=== PATIENT | female | born 1980 | race Caucasian/White ===

== ENCOUNTER → 2017-10-07 08:21 | Outpatient (REF) | payer OTHER, SELFPAY ==
[2017-10-07 14:21] LABS: Basophils # 0.1 K/mm3 (0-0.2); Basophils % 0.6 % (0.1-2.0); Eosinophils # 0.7 K/mm3 (0.0-0.4); Eosinophils % 7.5 % (0.1-12.0); Hematocrit 47.9 % (37.0-47.0); Hemoglobin 15.6 g/dL (12.2-16.2); Lymphocytes # 2.1 K/mm3 (0.7-4.5); Lymphocytes % 23.8 K/mm3 (10-50); Mean Corpuscular HGB Conc 32.6 g/dL (31.8-35.4); Mean Corpuscular Hemoglobin 31.4 pg (27.0-31.2); Mean Corpuscular Volume 96.6 fl (81-99); Mean Platelet Volume 10.5 fl (7.4-10.4); Monocytes # 0.4 K/mm3 (0.1-1.0); Monocytes % 4.5 % (1.7-9.3); Neutrophils # 5.7 K/mm3 (1.8-7.8); Neutrophils % 63.6 % (37.0-80.0); Platelet Count 257 K/mm3 (142-424); Red Blood Count 4.96 M/mm3 (4.20-5.40); Red Cell Distribution Width 13.1 % (11.5-17.5)
[2017-10-07 14:39] LABS: Alanine Aminotransferase 23 U/L (12-78); Albumin Level 3.7 gm/dL (3.4-5.0); Alkaline Phosphatase 127 U/L (46-116); Aspartate Amino Transferase 11 U/L (15-37); Bilirubin,Total 0.2 mg/dL (0.2-1.0); Blood Urea Nitrogen 4 mg/dL (7-18); Calcium 8.9 mg/dL (8.5-10.1); Carbon Dioxide 26 mmol/L (21.0-32.0); Chloride 103 mmol/L (98-107); Chol/HDL Ratio 5.1 (1-3.5); Cholesterol 214 mg/dL (140-200); Estimated Glomerular Filt Rate 95 ml/min (>60); Free T4 (Free Thyroxine) 0.99 ng/dl (0.76-1.46); GFR (African American) 115 ML/MIN (>60); Globulin 3.7 gm/dl (1.3-3.2); Glucose 83 mg/dL (74-106); HDL Cholesterol 42 mg/dL (29-89); LDL Cholesterol 130 mg/dL (0-130); Sodium 141 mmol/L (136-145); Thyroid Stimulating Hormone 8.78 uIU/ml (0.358-3.740); Total Protein,Serum 7.4 gm/dL (6.4-8.2); Triglycerides 211 mg/dL (30-200); VLDL Cholesterol 42 mg/dL (0-40)
[2017-10-07 16:18] LABS: Hemoglobin A1C 5.4 % (0.0-7.0)
[2017-10-08 13:22] LABS: Vitamin D 25 Hydroxy 13.1 ng/mL (30.0-100.0)
== END ==
LOC: LAB 08:21
PROVIDERS: Visit Provider Nurse Practitioner Family
DX: R53.83 Other fatigue (principal)
CPT/HCPCS: 80053; 80061; 82652; 83036; 84439; 84443; 85025

== ENCOUNTER → 2017-10-17 13:44 | Outpatient (CLI) | payer OTHER, SELFPAY ==
--- NOTE | 2017-10-17 13:46 | US_ITS ---
US thyroid COMPARISON: None HISTORY: Suspected thyroid enlargement on exam TECHNIQUE: Targeted ultrasound of the thyroid FINDINGS: The isthmus of the gland is grossly normal. The right lobe measures 1.9 x 1.8 x 3.5 cm. The left lobe measures 1.2 x 1.6 x 3.3 cm. There is homogeneous echogenicity in both lobes with normal vascular flow to both lobes. No cystic or solid lesions are seen. IMPRESSION: Mildly enlarged thyroid gland with homogeneous echogenicity suggesting mild diffuse goiter
== END ==
PROVIDERS: Family Provider Internal Medicine Adolescent Medicine; PCP Nurse Practitioner Family; Visit Provider Nurse Practitioner Family
DX: E07.9 Disorder of thyroid, unspecified (principal); R53.83 Other fatigue
CPT/HCPCS: 76536

== ENCOUNTER 2021-01-28 02:57 | Emergency (ER) | payer OTHER, SELFPAY ==
[2021-01-28 03:05] VITALS: BP 163/91; PULSE 73; RESP 17; TEMP 36.7; O2SAT 98; BMI 27.1
--- NOTE | 2021-01-28 03:09 | CT_ITS ---
PROCEDURE INFORMATION: Exam: CT Abdomen And Pelvis With Contrast Exam date and time: 01/28/2021 3:09 AM Age: 40 years old Clinical indication: Abdominal pain; Localized; Patient HX: Abd pain radiating to right side with nausea for 3 hours; Additional info: Abd pain radiating to right flank TECHNIQUE: Imaging protocol: Computed tomography of the abdomen and pelvis with contrast. Radiation optimization: All CT scans at this facility use at least one of these dose optimization techniques: automated exposure control; mA and/or kV adjustment per patient size (includes targeted exams where dose is matched to clinical indication); or iterative reconstruction. Contrast material: ISOVUE; Contrast volume: 75 ml; Contrast route: IV; COMPARISON: ABDPELW/O CT ABD PELVIS W/O CONTRAST 06/17/2015 12:56 PM FINDINGS: Liver: Normal. No mass. Gallbladder and bile ducts: The gallbladder is distended and there are multiple gallstones. Pancreas: Normal. No ductal dilation. Spleen: Normal. No splenomegaly. Adrenal glands: Normal. No mass. Kidneys and ureters: Normal. No hydronephrosis. Stomach and bowel: Unremarkable. No obstruction. No mucosal thickening. Appendix: No evidence of appendicitis. Intraperitoneal space: Unremarkable. No free air. No significant fluid collection. Vasculature: Unremarkable. No abdominal aortic aneurysm. Lymph nodes: Unremarkable. No enlarged lymph nodes. Urinary bladder: Unremarkable as visualized. Reproductive: There is an irregular hyperdense crenelated lesion in the right ovary, consistent with a corpus luteum. Bones/joints: Unremarkable. No acute fracture. Soft tissues: Unremarkable. IMPRESSION: The gallbladder is distended and there are multiple gallstones.
[2021-01-28 03:33] LABS: Basophils # 0.1 K/mm3 (0-0.2); Basophils % 0.9 % (0.1-2.0); Eosinophils # 0.6 K/mm3 (0.0-0.4); Eosinophils % 6.5 % (0.1-12.0); Hematocrit 43.5 % (37.0-47.0); Lymphocytes % 32.4 % (10-50); Mean Corpuscular HGB Conc 34.4 g/dL (31.8-35.4); Mean Corpuscular Hemoglobin 30.5 pg (27.0-31.2); Mean Corpuscular Volume 88.7 fl (81-99); Monocytes # 0.5 K/mm3 (0.1-1.0); Monocytes % 5.4 % (1.7-9.3); Neutrophils # 5.1 K/mm3 (1.8-7.8); Neutrophils % 54.8 % (37.0-80.0); Red Cell Distribution Width 16.7 % (11.5-17.5); White Blood Count 9.4 K/mm3 (4.8-10.8)
[2021-01-28 03:44] LABS: Alanine Aminotransferase 18 U/L (12-78); Albumin Level 4.5 g/dl (3.5-5.0); Albumin/Globulin Ratio 1.4 (1.1-1.8); Alkaline Phosphatase 112 U/L (38-126); Amylase 75 U/L (30-110); Anion Gap 15.1 mEq/L (5-15); Aspartate Amino Transferase 30 U/L (14-36); Bilirubin,Total 0.6 mg/dl (0.2-1.3); Blood Urea Nitrogen 9 mg/dl (7-17); Calcium 9.4 mg/dl (8.4-10.2); Carbon Dioxide 25 mmol/L (22.0-30.0); Chloride 101 mmol/L (98-107); Creatinine Clearance Estimated 169 mL/min (50-200); Estimated Glomerular Filt Rate 111 ml/min (>60); GFR (African American) 134 ML/MIN (>60); Globulin 3.2 g/dL (1.3-3.2); Glucose 112 mg/dl (74-100); Lipase 199 U/L (23-300); Potassium 4.1 mmoL/L (3.5-5.1); Sodium 137 mmol/L (136-145); Total Protein,Serum 7.7 g/dl (6.3-8.2)
[2021-01-28 03:49] LABS: C-Reactive Protein 4.5 mg/L (0-4)
[2021-01-28 03:52] LABS: Platelet Count 276 K/mm3 (142-424)
[2021-01-28 04:03] LABS: HCG Qualitative, Serum Negative (Negative)
[2021-01-28 04:03] LABS: Procalcitonin 0.049 ng/mL (0.0-2.0)
[2021-01-28 04:10] LABS: Erythrocyte Sedimentation Rate 16 mm/hr (0-20)
[2021-01-28 04:45] VITALS: BP 145/75; PULSE 85; RESP 18; O2SAT 98
[2021-01-28 05:25] VITALS: BP 112/78; PULSE 50; RESP 16; O2SAT 100
--- NOTE | 2021-01-28 05:28 | PC.NURSE ---
Called radiology @ 05 to check on the status of CT report, rad amy contacted [facility] and it will be read as soon as they can.
--- NOTE | 2021-01-28 05:39 | PC.NURSE ---
called to check on ct report. spoke with fawn. stated she had called [facility] to find out what the hold up was and was told they were reading scans in order of acuity.
[2021-01-28 05:50] LABS: Microscopic, Urine URINE MICROSCOPIC (MICROSCOPIC)
[2021-01-28 05:52] LABS: Appearance,Urine SL CLOUDY (Clear); Bilirubin,Urine Negative (Negative); Blood, Urine Negative (Negative); Color,Urine YELLOW (Yellow); Glucose,Urine (UA) Negative (Negative); Ketones,Urine Negative (Negative); Leukocyte Esterase,Urine Negative (Negative); Nitrate,Urine Negative (Negative); Protein,Urine Negative (Negative); Specific Gravity, Urine <= 1.005 (1.005-1.030); Urobilinogen,Urine 0.2 EU/dl (0.2)
[2021-01-28 06:00] VITALS: BP 123/74; PULSE 78; RESP 16; O2SAT 99
[2021-01-28 06:01] LABS: Bacteria,Urine 1+ /lpf
--- NOTE | 2021-01-28 06:22 | HMH.EDNVD ---
ED Disposition Clinical Impression: Cholelithiasis Qualifiers: Cholelithiasis location: gallbladder Cholecystitis presence: without cholecystitis Biliary obstruction: without biliary obstruction Qualified Code(s): K80.20 - Calculus of gallbladder without cholecystitis without obstruction Disposition: Home, Self-Care Condition on Discharge: Good Instructions: DI for Gallstones Additional Instructions: see surg and pcp for follow up Referrals: Provider,Randell, [Primary Care Provider] - Cecilio Boston MD [Staff Physician] - Tomy Torrez MD [Staff Physician] - - Critical Care Critical Care Time: No Attestation: On 01/28/21, the high probability of a clinically significant, sudden or life threatening deterioration of the following system(s) required my full and direct attention, intervention and personal management. The time I documented below is in addition to time spent performing reported procedures but includes the following listed in this critical care notation. Medical Decision Making - Medical Records Medical records reviewed: Yes: I reviewed the patient's medical records. - Raghu Inquiry Pt receiving controlled substance: No Vital Signs: 01/28/21 03:05 01/28/21 05:25 Temperature 98.0 F Temperature Source Oral Pulse Rate 50 L Pulse Rate [Right Brachial] 73 Respiratory Rate 17 16 Blood Pressure 112/78 Blood Pressure [Right Arm] 163/91 H Blood Pressure Mean [Right Arm] 115 Blood Pressure Source Automatic Cuff Blood Pressure Source [Right Arm] Automatic Cuff Blood Pressure Position Supine Blood Pressure Position [Right Arm] Sitting 02 Sat by Pulse Oximetry 98 100 Oxygen Delivery Method Room Air Room Air - Lab Data Lab results reviewed: Yes: I reviewed the patient's lab results. Lab Results 01/28/21 03:19: WBC 9.4, RBC 4.90, Hgb 15.0, Hct 43.5, MCV 88.7, MCH 30.5, MCHC 34.4, RDW 16.7, Plt Count 276, MPV 8.0, Neut % (Auto) 54.8, Lymph % (Auto) 32.4, [place] % (Auto) 5.4, Eos % (Auto) 6.5, Baso % (Auto) 0.9, Neut # (Auto) 5.1, Lymph # (Auto) 3.0, [place] # (Auto) 0.5, Eos # (Auto) 0.6 H, Baso # (Auto) 0.1, ESR 16 01/28/21 03:19: Sodium 137, Potassium 4.1, Chloride 101, Carbon Dioxide 25, Anion Gap 15.1 H, BUN 9, Creatinine 0.60, Estimated Creat Clear 169, Estimated GFR 111, Est GFR ( Amer) 134, Glucose 112 H, Calcium 9.4, Total Bilirubin 0.6, AST 30, ALT 18, Alkaline Phosphatase 112, C-Reactive Protein 4.5 H, Total Protein 7.7, Albumin 4.5, Globulin 3.2, Albumin/Globulin Ratio 1.4, Amylase 75, Lipase 199, Procalcitonin 0.049 01/28/21 03:45: Serum HCG, Qual Negative 01/28/21 05:20: Urine Color Yellow, Urine Appearance Sl cloudy, Urine pH 6.0, Ur Specific Enloe <= 1.005, Urine Protein Negative, Urine Glucose (UA) Negative, Urine Ketones Negative, Urine Blood Negative, Urine Nitrate Negative, Urine Bilirubin Negative, Urine Urobilinogen 0.2, Ur Leukocyte Esterase Negative, Urine WBC 3-5, Ur Squamous Epith Cells 3-5, Urine Bacteria 1+ Result diagrams: 01/28/21 03:19 01/28/21 03:19 Orders (Tests/Meds): ED MEDICATIONS Generic Name Dose Route Start Last Admin Trade Name Freq PRN Reason Stop Dose Admin Sodium Chloride 1,000 mls @ 999 mls/hr 01/28/21 03:15 01/28/21 03:50 Sod Chlor 0.9% 1000ml Bag IV 01/28/21 04:15 999 mls/hr .[id number] DOUG Administration Discontinued Medications Generic Name Dose Route Start Last Admin Trade Name Freq PRN Reason Stop Dose Admin Iopamidol 75 ml 01/28/21 04:25 01/28/21 04:26 Iopamidol-370 (76%);100ml Bottle IV 01/28/21 04:26 75 ml ONCE ONE Administration Ketorolac Tromethamine 30 mg 01/28/21 03:12 01/28/21 04:06 Ketorolac 30mg/Ml Vial IV 01/28/21 03:13 30 mg ONCE ONE Administration Ondansetron HCl 4 mg 01/28/21 04:02 01/28/21 04:06 Ondansetron 4mg/2ml Vial IV 01/28/21 04:03 4 mg ONCE ONE Administration Sodium Chloride 10 ml 01/28/21 04:25 01/28/21 04:26 Sodium Chloride 0.9% 10ml Syr (Rad
[2021-01-28 06:33] VITALS: BP 133/74; PULSE 82; RESP 15; TEMP 36.9
== END 2021-01-28 06:43 | disposition home or self-care (01) ==
PROVIDERS: Emergency Provider Emergency Medicine
DX: K80.20 Calculus of gallbladder without cholecystitis without obstruction (principal); E78.5 Hyperlipidemia, unspecified; Z88.0 Allergy status to penicillin; F17.210 Nicotine dependence, cigarettes, uncomplicated
CPT/HCPCS: 74177; 80053; 81001; 82150; 83690; 84145; 84703; 85025; 85651; 86140; 96365; 96375; 99282; J2405; Q9967

== ENCOUNTER → 2021-01-29 14:42 | Outpatient (CLI) | payer OTHER, SELFPAY ==
[2021-01-29 15:45] LABS: Basophils # 0.1 K/mm3 (0-0.2); Basophils % 0.5 % (0.1-2.0); Eosinophils # 0.4 K/mm3 (0.0-0.4); Eosinophils % 3.6 % (0.1-12.0); Hemoglobin 14.4 g/dL (12.2-16.2); Lymphocytes # 1.9 K/mm3 (0.7-4.5); Mean Corpuscular HGB Conc 33.5 g/dL (31.8-35.4); Mean Corpuscular Hemoglobin 29.9 pg (27.0-31.2); Mean Corpuscular Volume 89.1 fl (81-99); Mean Platelet Volume 8.5 fl (7.4-10.4); Monocytes # 0.5 K/mm3 (0.1-1.0); Monocytes % 4.5 % (1.7-9.3); Neutrophils # 8.2 K/mm3 (1.8-7.8); Neutrophils % 74.4 % (37.0-80.0); Platelet Count 289 K/mm3 (142-424); Red Blood Count 4.82 M/mm3 (4.20-5.40); Red Cell Distribution Width 16.6 % (11.5-17.5)
[2021-01-29 15:52] LABS: Chloride 104 mmol/L (98-107); Potassium 4.1 mmoL/L (3.5-5.1); Sodium 138 mmol/L (136-145)
[2021-01-29 15:55] LABS: Alanine Aminotransferase 50 U/L (12-78); Albumin Level 4.8 g/dl (3.5-5.0); Albumin/Globulin Ratio 1.5 (1.1-1.8); Alkaline Phosphatase 144 U/L (38-126); Amylase 47 U/L (30-110); Anion Gap 17.1 mEq/L (5-15); Aspartate Amino Transferase 95 U/L (14-36); Bilirubin,Total 0.9 mg/dl (0.2-1.3); Blood Urea Nitrogen 3 mg/dl (7-17); Calcium 9.4 mg/dl (8.4-10.2); Carbon Dioxide 21 mmol/L (22.0-30.0); Estimated Glomerular Filt Rate 137 ml/min (>60); GFR (African American) 165 ML/MIN (>60); Globulin 3.2 g/dL (1.3-3.2); Glucose 80 mg/dl (74-100); Lipase 133 U/L (23-300)
[2021-01-31 11:14] LABS: Hep A Ab, IgM Negative (Negative); Hepatitis B Core Antibody IgM Negative (Negative); Hepatitis B Surface Antigen Negative (Negative); Hepatitis C Antibody <0.1 s/co ratio (0.0-0.9)
== END ==
PROVIDERS: Visit Provider Surgery
DX: Z01.812 Encounter for preprocedural laboratory examination (principal); Z11.52 Encounter for screening for COVID-19; R10.11 Right upper quadrant pain; K80.20 Calculus of gallbladder without cholecystitis without obstruction
CPT/HCPCS: 36415; 80053; 80074; 82150; 83690; 85025; U0003

== ENCOUNTER 2021-01-30 09:03 | Day surgery (SDC) | payer OTHER, SELFPAY ==
[2021-01-30] VITALS (10 sets, daily range): BP systolic 96–140; BP diastolic 54–89; PULSE 55–94; RESP 12–20; TEMP 36.1–43; O2SAT 95–100; BMI 26.6
--- NOTE | 2021-01-30 09:08 | US_ITS ---
PROCEDURE: US GALLBLADDER CLINICAL INDICATION: right upper quad pain COMPARISON: No exams were available for comparison FINDINGS: Pancreas: Unremarkable/Not well seen Liver: Unremarkable. There is appropriate direction of blood flow within a non dilated portal vein. Right kidney: Unremarkable appearing. No hydronephrosis. Gallbladder: There are gallstones present. The gallbladder is distended 14 x 4.5 cm. No pericholecystic fluid . There is a large stone present in the neck of the gallbladder. The stone measures approximately 17 mm. There is mild gallbladder wall thickening at 4 mm. Technologist notes a positive sonographic Iyer's. IMPRESSION: Distended gallbladder with cholelithiasis with a persistent stone in the neck of the gallbladder with mild gallbladder wall thickening and a positive sonographic Iyer's.. Common bile duct is normal in caliber at 4 mm. Dictated by: Dejon Ohara MD 01/30/2021 12:43 Dejon Ohara MD in [place] 01/30/2021 12:43
--- NOTE | 2021-01-30 11:39 | HMH.ANESCL ---
[facility] Anesthesia Checklist - Patient Identification Patient Identification: Arm Band - Structural Data Admitted From: Home Planned Operative Procedure/s: Lap. cholecystectomy Consent for Planned Operative Procedure(s) Verified: Yes - NPO Status Verified Time NPO: 00:00 - Airway Assessment C-Spine Mobility Assessed: Yes TMJ Mobility Assessed: Yes Dentition: Good Dentition - Neurological Assessment Level of Consciousness: Awake Hx Seizures: No Numbness or tingling in extremities: No - Anesthesia Plan Anesthesia Risk discussed: Yes Anesthesia Plan: Verified ASA Class: I Anesthesia Type: General [facility] History I have reviewed the patient's past medical history: Yes Medical History: Reports:: Hyperlipidemia *Have you ever received a pneumonia vaccine?: No *Have you received a flu vaccine this season?: No Other Medical History: Reports: Sinus Problems, Thyroid Disease Anesthesia experience/problems:: None Other Surgeries: Yes: Amputation: No Fractures: No - *Social History Smoking Status: Current every day smoker Tobacco Type: cigarettes # Packs/Day (cigarettes): 1 #Yrs smoked (if former smoker): 16 Alcohol Intake: never Substance Use Type: denies use *Occupational Status:: unemployed Housing: house Household Members: children, spouse *Travel in the last 8 weeks: None Family Hx:: Diabetes
--- NOTE | 2021-01-30 15:11 | HMH.OPNOTE ---
Date of procedure: 01/30/21 Pre-op Diagnosis:: Severely symptomatic gallstones Post-op Diagnosis:: Acute calculus cholecystitis Procedure performed:: Laparoscopic cholecystectomy Surgeon:: Cecilio Boston MD HAM DOCTOR:: Other Anesthesia: CUAUHTEMOC Estimated blood loss (mL): 30 Clinical Note:: Patient is a 40-year-old female. She has no primary care provider. She was referred from the emergency department. She states that Friday night on 01/27/2021 she had eaten spaghetti. Later that evening she developed onset of quite significant epigastric pain radiating around to her back with associated nausea. Evaluation in the emergency department included CT scan which revealed gallstones with distended gallbladder. She was managed as an outpatient. She had persistent severe pain with associated nausea and intolerance of oral nutritional intake. SHe had contacted the office yesterday morning for evaluation and given the severity of her symptoms was scheduled to be seen immediately. She denies any prior history of known gallbladder problems. Denies any history of hepatitis. She does state that for several months she has had intermittent self-limited upper abdominal pains but not nearly as severe as this episode. When seen in the office she was found to be markedly tender in the upper abdomen and quite uncomfortable. Arrangements were made for relatively urgent outpatient cholecystectomy for the following day. Operative findings:: She had a massively distended hydropic gallbladder with pericholecystic edema and thickening of the gallbladder wall consistent with calculus cholecystitis Operative note:: Consent was obtained and patient was taken to the operating room. She was given preoperative intravenous antibiotics. General anesthesia was induced via endotracheal tube. Abdomen was prepped and draped in the standard surgical fashion. Subumbilical skin incision was made and while performing abdominal wall lift Veress needle was inserted. CO2 pneumoperitoneum was achieved to 15 mmHg. 11 mm optical trocar was inserted at the umbilicus. Intraperitoneal contents were visualized. She was immediately noted to have massively distended thickened inflamed gallbladder. She was positioned in reverse Trendelenburg left side down. A couple 5 mm trochars were inserted in the right upper abdomen. 10 mm trocar was inserted in the epigastrium. Due to the apparent acute hydropic gallbladder laparoscopic needle aspirator was inserted into the gallbladder and the gallbladder was drained. There was clear mucousy bile consistent with hydrops of the gallbladder. Gallbladder wall was markedly thickened. Gallbladder was grasped retracted anteriorly and superiorly over the dome of the liver. There were omental adhesions of the gallbladder which were taken down using blunt dissection. Gallbladder was markedly elongated and distended. Infundibulum of the gallbladder was grasped retracted anterior laterally. Blunt dissection was carried out the neck of the gallbladder. Ultimately the cystic duct and cystic artery were clearly identified. Cystic duct was multiply clipped and sharply divided. Cystic artery was carefully coagulated with JORGE ultrasonic harmonic kaylynn and divided. Gallbladder was dissected free from the liver in a retrograde fashion using JORGE ultrasonic harmonic kaylynn. There was a small amount of unavoidable spillage of bile during the dissection process and this was immediately suctioned free. Gallbladder was placed within an Endo Catch retrieval device and removed from the peritoneal cavity via the umbilical trocar site which required some generous extension of the fascial incision for delivery of the gallbladder. Gallbladder fossa was inspected for hemostasis. Gallbladder fossa and perihepatic space were irrigated and aspirated until clear. Trochars were removed as CO2 pneumoperitoneum was evacuated. Fascia at the umbilicus was closed with multiple inter
--- NOTE | 2021-01-30 15:47 | P.PN_ITS ---
[facility] Anesthesia Record Part I Intake, IV Amount: 1,000 Estimated blood loss (mL): 10 Urine output (mL): 0 Blood Pressure: 96/54 SaO2: 96 Pulse Rate: 74 Respiratory Rate: 12 Temperature: 98.3 F Patient is:: Awake, Drowsy Stable to PACU at:: 15:25
--- NOTE | 2021-01-31 12:20 | HMH.ANESII ---
[facility] Anesthesia Record Part II Discharge Time: 15:45 Destination: Surgical Day Care (OP Surgery) PACU nurse assessment reviewed?: Yes Patient Condition:: Good Anesthesia Complications:: None Swallowing reflex intact?: Yes Cyanosis?: No Blood Pressure: 117/80 Pulse Rate: 67 Temperature: 97.5 F Mental Status: Alert & Oriented Pain level:: 0 Nausea and/or vomitting:: None Intake, IV Amount: 0
[2021-01-31 12:21] VITALS: BP 117/80; PULSE 67; TEMP 36.4
== END 2021-01-30 16:16 | disposition home or self-care (01) ==
LOC: OR 09:04
PROVIDERS: Visit Provider Surgery
PROC: 0FT44ZZ Resection of Gallbladder, Percutaneous Endoscopic Approach (ICD-10-PCS; CPT 47562; principal; 2021-01-30 13:00)
DX: K80.00 Calculus of gallbladder with acute cholecystitis without obstruction (principal); K82.8 Other specified diseases of gallbladder; K82.1 Hydrops of gallbladder; E78.5 Hyperlipidemia, unspecified; E07.9 Disorder of thyroid, unspecified; Z72.0 Tobacco use; Z83.3 Family history of diabetes mellitus; Z88.0 Allergy status to penicillin
CPT/HCPCS: 47562; 76705; 96374; J0131; J2405

== ENCOUNTER 2021-04-09 20:05 | Emergency (ER) | payer OTHER, SELFPAY ==
[2021-04-09 21:30] VITALS: BP 138/80; PULSE 72; RESP 19; TEMP 37; O2SAT 99; BMI 26.6
--- NOTE | 2021-04-09 22:14 | HMH.EDUTC ---
[facility] [place] Impression: Viral upper [place] Disposition: Home, Self-Care Condition on Discharge: Good Instructions: DI for COVID-19 (Suspected or Confirmed ), Preventing the Spread of Coronavirus Discharge Instructions, DI for Viral Upper Respiratory Infection -- Adult Additional Instructions: *Monitor Temp, Over the counter Motrin or Tylenol as directed/as needed Tylenol every 4 hours and Motrin every 6 hours (as long as your family doctor has told you that you can take it) for fever or pa-in. and straight to ER if unable to lower temp less than 101.0 after medication given *Warm salt water gargles may help to soothe the throat *Throat Lozenges *Warm fluids like tea with honey may help to soothe the throat *Sleep elevated *Humidifier/Vaporizer *Flonase 2 sprays in each nostril daily but be aware that it may take 2-3 days before you notice improvement Follow up IMMEDIATELY for new or worsening symptoms or no Noticeable improvement over the next 48-72 hours. 911 for difficulty breathing or swallowing You were tested for today for COVID19 your test result should be back in the next 24-48 hours, Check the [facility] Portal to see if your test results are back in the next 48 it may say detected that means your result is positive.You was given handout instructions on how log on and see your results. If you do not have internet access you may call the [facility] for your results [phone] You was given a handout with instructions for Self Quarantine and Self isolation for while you wait on test results and what to do if they are positive If you are positive the Health Dept will be contacting you also Make sure to take your Vitamins Vit. C Vit D and Zinc if you can take them Prescriptions: Fluticasone Propionate [Flonase 50mcg nasal spray 16gm] 1 spr NS DAILY #1 ml Transmission Status: Pending to [id number] Benzonatate [Tessalon Perle 100mg Cap*] 100 mg PO TID PRN #30 cap PRN Reason: Cough Transmission Status: Pending to [id number] Referrals: Provider,Referral, MD [Primary Care Provider] - As needed Forms: Work/School Release Time of Disposition: 22:29 Medical Decision Making - Raghu Inquiry Pt receiving controlled substance: No Raghu was queried for this patient: No Vital Signs: 04/09/21 21:30 Temperature 98.6 F Temperature Source Oral Pulse Rate [Right Brachial] 72 Respiratory Rate 19 Blood Pressure [Right Arm] 138/80 Blood Pressure Mean [Right Arm] 99 Blood Pressure Source [Right Arm] Automatic Cuff Blood Pressure Position [Right Arm] Sitting 02 Sat by Pulse Oximetry 99 Oxygen Delivery Method Room Air Orders (Tests/Meds): ORDERS Category Date Time Status Covid-19 Nasal PCR ([facility]) Routine Lab 04/09/21 21:33 [place] [facility] [place] - General Stated complaint: covid test Time Seen by Provider: 04/09/21 22:15 Mode of Arrival: Ambulatory Source of Information: Patient Limitations: No Limitations Description of Symptoms (Recalled from Triage Doc. by RN): PATIENT C/O HEADACHE, SORE THROAT, AND COUGH SINCE FRIDAY. REQUESTING COVID TEST HEENT Symptoms (Recalled from RN notes): Yes Resp Symptoms (Recalled from RN notes): Yes Skin Symptoms (Recalled from RN notes): No MS Symptoms (Recalled from RN notes): No Functional Status (Recalled from RN notes): WNL - History of Present Illness Provider Complaint: Patient state that she started feeling bad on Friday having headache, nasal congestion and cough state that she wanted to get checked for COVID state that she hasnt been around anyone that she is aware of but tonight she wasnt feeling any better and her was having similar symptoms so they come in to get tested - Related Data Previous Rx's Medication Instructions Recorded Benzonatate [Tessalon Perle 100mg 100 mg PO TID PRN #30 cap 04/09/21 Cap*] Fluticasone Propionate [Flonase 1 spr NS DAILY #1 ml 04/09/21 50mcg nasal spray 16gm] Allergies
[2021-04-09 22:45] LABS: UTC Strep Screen (Rapid) Negative (Negative)
[2021-04-09 22:48] VITALS: BP 138/80; PULSE 72; RESP 19; TEMP 37; O2SAT 99
--- NOTE | 2021-04-10 11:46 | PC.NURSE ---
Notified pt of her positive results and also her husbands Neptali Lundleodouglas.
== END 2021-04-09 22:58 | disposition home or self-care (01) ==
PROVIDERS: Emergency Provider Nurse Practitioner
DX: U07.1 COVID-19 (principal); E78.5 Hyperlipidemia, unspecified; F17.210 Nicotine dependence, cigarettes, uncomplicated
CPT/HCPCS: 87880; 99203; G0463; U0003

== ENCOUNTER 2024-07-01 14:50 | Outpatient (CLI) | payer OTHER, SELFPAY ==
[2024-07-01 19:29] LABS: Alanine Aminotransferase 13 U/L (12-78); Albumin Level 4.3 g/dl (3.5-5.0); Albumin/Globulin Ratio 1.5 (1.1-1.8); Alkaline Phosphatase 131 U/L (38-126); Anion Gap 13.7 mEq/L (5-15); Aspartate Amino Transferase 21 U/L (14-36); Bilirubin,Total 0.5 mg/dl (0.2-1.3); Blood Urea Nitrogen 5 mg/dl (7-17); Calcium 9.8 mg/dl (8.4-10.2); Carbon Dioxide 26 mmol/L (22.0-30.0); Chloride 108 mmol/L (98-107); Chol/HDL Ratio 5.3 (1-3.5); Cholesterol 252 mg/dl (140-200); Estimated Glomerular Filt Rate 109 ml/min (>60); GFR (African American) 132 ML/MIN (>60); Globulin 2.9 g/dL (1.3-3.2); Glucose 90 mg/dl (74-100); HDL Cholesterol 48 mg/dl (40-60); Potassium 4.7 mmoL/L (3.5-5.1); Sodium 143 mmol/L (136-145); Total Protein,Serum 7.2 g/dl (6.3-8.2); Triglycerides 221 mg/dl (30-150); VLDL Cholesterol 44 mg/dL (0-40)
[2024-07-01 19:41] LABS: Direct LDL Cholesterol 164.84 mg/dL (100-129)
[2024-07-01 19:49] LABS: 25-OH Vitamin D, Total 17.2 ng/mL (30-100)
[2024-07-01 20:02] LABS: Thyroid Stimulating Hormone 3.48 uIU/mL (0.465-4.68)
[2024-07-01 22:05] LABS: HIV (1&2) Antibody Rapid NONREACTIVE (NONREACTIVE)
[2024-07-01 22:06] LABS: Hemoglobin A1C 5.4 % (4.0-6.0)
[2024-07-03 07:14] LABS: HCV Ab Non Reactive (Non Reactive)
== END 2024-07-01 23:59 | disposition home or self-care (01) ==
LOC: LAB.DROPOF 07-02 07:52
PROVIDERS: PCP Family Medicine; Visit Provider Family Medicine
DX: E55.9 Vitamin D deficiency, unspecified (principal); E78.5 Hyperlipidemia, unspecified; E03.9 Hypothyroidism, unspecified; Z11.59 Encounter for screening for other viral diseases; Z13.1 Encounter for screening for diabetes mellitus
CPT/HCPCS: 80053; 80061; 82306; 83036; 84443; 86803; 87389